=== PATIENT | female | born 2000 | race Caucasian/White ===

== ENCOUNTER → 2025-04-21 | Outpatient (CLI) | payer BC, SELFPAY ==
[2025-04-21 12:22] LABS: Absolute Lymphocyte Count 2.81 X10^3/uL (0.83-4.51); Absolute Neutrophil Count 2.5 X10^3/uL (2.0-7.7); Basophil# 0.06 X10^3/uL; Eosinophil# 0.28 X10^3/uL; Eosinophils% 4.6 % (0-5); Hematocrit 43.7 % (37-47); Hemoglobin 15.1 g/dL (12.0-15.0); Lymphocyte # 2.81 X10^3/ul (0.83-4.51); Lymphocyte % 46.3 % (19-41); Mean Corp Hgb Conc 34.6 g/dL (32-36); Mean Corpuscular Hgb 30.5 pg (27.0-32.0); Mean Corpuscular Volume 88.3 fL (81-99); Mean Platelet Vol. 10.1 fl (6.2-12.0); Monocyte# 0.39 X10^3/uL; Monocyte% 6.4 % (0-10); NRBC Flagged by Analyzer 0 % (0-5); Neutrophil # 2.52 X10^3/uL (2.7-7.7); Neutrophil % 41.5 % (47-70); Platelet Count 231 K/mm3 (150-450); RBC Distribution Width CV 11.9 % (11.6-14.6); RBC Distribution Width SD 38.8 fl (35.1-43.9); Red Blood Count 4.95 M/mm3 (4.2-5.4); White Blood Count 6.1 K/mm3 (4.4-11.0)
[2025-04-21 13:50] LABS: ALB/GLOB Ratio 1.7 RATIO (0.9-2.4); AST(SGOT) 20 U/L (<=31); Alanine Aminotransfer ALT/SGPT 14 U/L (<=34); Albumin, Serum 4.8 g/dL (3.5-5.0); Alkaline Phosphatase 62 U/L (35-104); Anion Gap 12 (5-15); BUN 11 mg/dL (4-19); BUN/Creat Ratio 14.1 RATIO (10-20); Calcium,Total 9.4 mg/dL (7.6-11.0); Carbon Dioxide 24.4 mmol/L (21.0-32.0); Chloride 104 mmol/L (98-108); Creatinine, Serum 0.77 mg/dL (0.70-1.20); EST Glomerular Filtration Rate 108 (>60); Globulin 2.8 g/dL (2.2-4.2); Glucose 88 mg/dL (70-99); Potassium 4.1 mmol/L (3.3-5.1); Protein, Total 7.6 g/dL (5.9-8.4); Sodium Level 140 mmol/L (133-145); Total Bilirubin 0.66 mg/dL (0.00-1.30)
[2025-04-27 09:51] LABS: HPV Reflexed? NOT INDICATED
== END | disposition home or self-care (01) ==
PROVIDERS: Referring Provider Nurse Practitioner Family; Visit Provider Nurse Practitioner Family
DX: Z12.4 Encounter for screening for malignant neoplasm of cervix (principal); E04.9 Nontoxic goiter, unspecified
CPT/HCPCS: 36415; 80053; 82306; 84439; 84443; 85025; 88175; G0145

== ENCOUNTER → 2025-04-28 | Outpatient (CLI) | payer BC, SELFPAY ==
--- NOTE | 2025-04-28 14:20 | US_ITS ---
PROCEDURE: THYROID, 04/28/2025 REASON FOR EXAM: ENLARGED THYROID TECHNIQUE: Grayscale and color Doppler imaging of the thyroid was performed. COMPARISON: None FINDINGS: Right lobe measures 5.0 x 1.5 x 1.7cm. Essentially homogeneous background echotexture. No abnormal vascularity. No solid or mostly solid nodules are identified. Left lobe measures 4.8 x 1.4 x 1.6 cm. Essentially homogeneous background echotexture. No abnormal vascularity. Nodules as below: Isthmus measures 2 mm in thickness. US/Thyroid IMPRESSION: 1. Assessment is TI-RADS 1. No nodules currently meet criteria for FNA or follo w-up. 2. Normal size homogeneous gland without abnormal vascularity. Recommendations per ACR Thyroid Imaging, Reporting and Data System (TI-RADS): Cathy barrow Paper of the ACR TI-RADS Committee, 2017 ([email or web address] Reading Location: [id number]
== END | disposition home or self-care (01) ==
LOC: US 14:19
PROVIDERS: Referring Provider Nurse Practitioner Family; Visit Provider Nurse Practitioner Family
DX: E04.9 Nontoxic goiter, unspecified (principal)
CPT/HCPCS: 76536

== ENCOUNTER → 2025-07-09 | Outpatient (CLI) | payer BC, SELFPAY ==
[2025-07-09 13:27] LABS: Vitamin D,25 Hydroxy 32.8 ng/mL (30-100)
== END | disposition home or self-care (01) ==
PROVIDERS: Referring Provider Nurse Practitioner Family; Visit Provider Nurse Practitioner Family
DX: E55.9 Vitamin D deficiency, unspecified (principal)
CPT/HCPCS: 36415; 82306